=== PATIENT | female | born 1985 | race Caucasian/White ===

== ENCOUNTER 2017-03-19 15:47 | Emergency (ER) | payer OTHER ==
[~2017-03-19] VITALS: Wt 65.9 kg
[2017-03-19] MEDS ORDERED: IBUPROFEN 600 MG TAB PO ONE (18:00)
--- NOTE | 2017-03-19 19:19 | RADRPT ---
PROCEDURE: XR Left Hand CLINICAL INDICATION: Pain to proximal thumb TECHNIQUE: PA, oblique, and lateral radiographs were submitted. COMPARISON: None FINDINGS: Osseous structures: appear well mineralized and intact with no fracture or destructive process iden tified. Joint spaces: are well maintained, with no significant spurring, erosion or joint effusion evident. Soft tissues: appear unremarkable. IMPRESSION: Unremarkable left hand. Physician Orville Date Time Electronically viewed and signed by Abimael Akers Physician on 03/19/2017 19:18 /
--- NOTE | 2017-03-19 19:46 | ERD ---
ER Documentation Chief Complaint Chief Complaint Left thumb pain HPI The patient is a 32-year-old female who presents to the Emergency Department with complaint of left thumb pain. The patient reports that she has been experiencing this pain for the past 3-4 days. The pain is localized to the thenar eminence of the left hand, and does not radiate. It is constant, though worsening with movement of the left thumb, palpation of the affected area or with grasping movements. 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 She sometimes wakes from sleep, needling to move around her left hand, and feeling as if she had fallen asleep on the arm, because she feels paresthesias to the affected area. Otherwise, she denies any numbness or weakness of the distal extremity. Denies restricted range of motion. Denies any recent falls, injury or trauma to the extremity. Denies any redness, warmth, swelling or wounds to the area. Denies fevers, sweats, chills, nausea, vomiting. No other complaints st this time. ROS All systems reviewed and are negative except as per history of present illness. Medications Home Meds Active Scripts Ibuprofen* (Motrin*) 600 Mg Tab, 600 MG PO Q6, #30 TAB Prov:AILYN WORLEY PA-C 03/19/17 Allergies Allergies: Coded Allergies: No Known Allergy (Unverified , 03/19/17) PMhx/Soc Medical and Surgical Hx: pt denies Medical Hx, pt denies Surgical Hx Hx Alcohol Use: Yes Hx Substance Use: No Hx Tobacco Use: No Smoking Status: Never smoker Physical Exam Vitals Vital Signs Date Time Temp Pulse Resp B/P Pulse Ox O2 Delivery O2 Flow Rate FiO2 03/19/17 20:16 98.9 68 20 100 Room Air 03/19/17 16:06 98.8 88 20 154/97 98 Physical Exam Const: Well-developed, well-nourished, in no acute distress. Head: Atraumatic Eyes: Normal Conjunctiva ENT: Normal External Ears, Nose and Mouth. Neck: Supple. Resp: Normal respiratory effort. Cardio: Regular rate and rhythm. Normal peripheral perfusion. Skin: No petechiae or rashes. No erythema. No wounds. Ext: No clubbing, cyanosis, or edema. Tenderness to palpation over the thenar eminence of the left hand. No gross deformities. No erythema, swelling, warmth of the area. Negative Phalen maneuver. Negative Tinel's test. Negative Florencio test. Distal neurovascular status intact. Radial, median and ulnar nerve distributions intact. Motor and sensation intact. Capillary refill is less than 2 seconds. Radial and ulnar pulses 2+. Neur: Awake and alert Psych: Normal Mood and Affect Results 24 hrs Current Medications Medications (Trade) Dose Ordered Sig/Rosalva Route PRN Reason Start Time Stop Time Status Last Admin Dose Admin Ibuprofen (Motrin) 600 mg ONCE ONCE PO 03/19/17 18:00 03/19/17 18:01 DC 03/19/17 19:02 Procedures/MDM Diagnostic Tests and Interpretation: PROCEDURE: XR Left Hand CLINICAL INDICATION: Pain to proximal thumb TECHNIQUE: PA, oblique, and lateral radiographs were submitted. COMPARISON: None FINDINGS: Osseous structures: appear well mineralized and intact with no fracture or destructive process identified. Joint spaces: are well maintained, with no significant spurring, erosion or joint effusion evident. Soft tissues: appear unremarkable. IMPRESSION: Unremarkable left hand. Physician Orville Date Time Electronically viewed and signed by Physician Orville on 03/19/2017 19:18 Medical Decision Making: This is a 32-year-old female presenting to the Emergency Department with complaint of left hand pain, to the thenar eminence. The patient does admit to repetitive motion/typing due to her position as an [employer]. She had tenderness to palpation over the left thenar eminence of the hand. Otherwise, she remained neurovascularly intact. She had negative Finkelsteines test, negative Phalen maneuver, negative Tinel's sign. Differential diagnosis includes, but is not limited to, soft tissue injury, contusion, sprain, strain, dislocation, fracture, neurovascular injury, tendon injury, ligamentous injury, vascular injury, peripheral nerve injury, De Quervains tenosynovitis, UCL tear, carpal tunnel syndrome, tendonitis, osteoarthritis, ganglia, nerve entrapment. X-ray revealed no acute findings, no fractures or dislocations. She had no swelling, warmth, erythema, clinical presentation is not consistent with septic arthritis or DVT. Upon review and interpretation of the patient's presentation and ED course, I believe her symptoms are most consistent with thumb pain. Suspect possible underlying tendonitis vs. early carpal tunnel syndrome At this time, the patient is in stable condition and therefore can be discharged home with prescriptions for Ibuprofen and given strict return precautions for signs of acute deterioration of condition. She is advised to follow up with a primary care provider for reevaluation and further management within 2-3 days, or return to the ER sooner for worsening symptoms. I shared my medical decision making, plan and the diagnostic results with the patient at length and in great detail, and she verbally understands and agrees with the plan for further observation and care as an outpatient. At the time of discharge all questions were answered. Departure Diagnosis: Primary Impression: Hand pain, left Condition: Stable Patient Instructions: Tendonitis Additional Instructions: Call your primary care doctor TOMORROW for an appointment during the next 2-3 days.See the doctor sooner or return here if your condition worsens before your appointment time. AILYN WORLEY PA-C Mar 19, 2017 19:46
[2017-03-19] MEDS ORDERED: IBUP-1542 PO (19:47)
[2017-03-19 20:16] VITALS: PULSE 68; RESP 20; TEMP 98.9
== END 2017-03-19 20:20 | disposition home or self-care (01) ==
LOC: FTE 15:47
DX: M79.645 Pain in left finger(s) (principal)
CPT/HCPCS: 73130; Z7502; Z7610